=== PATIENT | female | born 1995 | race Caucasian/White ===

== ENCOUNTER 2016-10-03 11:07 | Emergency (ER) | payer SELFPAY | END 2016-10-03 12:38 | disposition home or self-care (01) | LOC: ED 11:07 | DX: L02.212 Cutaneous abscess of back [any part, except buttock and flank] (principal); L02.411 Cutaneous abscess of right axilla; B95.62 Methicillin resistant Staphylococcus aureus infection as the cause of diseases classified elsewhere ==